=== PATIENT | male | born 2000 | race Two or more races ===

== ENCOUNTER 2019-11-06 07:42 | Emergency (ER) | payer SELFPAY ==
[2019-11-06 08:19] VITALS: BP 104/59
[2019-11-06] MEDS ORDERED: IBUPROFEN 800 MG TABLET PO ONE (08:52)
--- NOTE | 2019-11-06 09:36 | ER Document Report ---
ED Flu Like - General Chief Complaint: Flu Symptoms Stated Complaint: COLD SYMPTOMS Time Seen by Provider: 11/06/19 09:14 Primary Care Provider: [facility] [Provider Group] - Follow up in 1 week TRAVEL OUTSIDE OF THE [place] IN LAST 30 DAYS: No - HPI Notes: 19-year-old male to the emergency department with mom with complaints of fever, body aches, cough, sore throat that began 2 days ago. Fever has had reached a T-max of 101.5. Mom has been alternating between Tylenol and Motrin. Patient when he has a fever has chills and when the fever breaks he sweats. Patient admits to some nausea and vomiting but denies any diarrhea. He did not get a flu shot this season. He is unsure if he had any other sick contacts. - Related Data Allergies/Adverse Reactions: No Known Allergies Allergy (Verified 11/06/19 08:27) Past Medical History - General Information source: Patient, Parent, Friend - Social History Smoking Status: Never Smoker Frequency of alcohol use: None Drug Abuse: None Lives with: Family Family History: Reviewed & Not Pertinent Patient has suicidal ideation: No Patient has homicidal ideation: No Review of Systems - Review of Systems Constitutional: See HPI, Chills, Diaphoresis, Fever, Malaise, Weakness EENT: Nose congestion, Throat pain Cardiovascular: denies: Chest pain, Palpitations, Syncope, Dizziness, Lightheaded Respiratory: Cough. denies: Short of breath Gastrointestinal: Nausea, Vomiting. denies: Abdominal pain, Diarrhea Genitourinary: No symptoms reported Musculoskeletal: Muscle pain - Body aches Skin: No symptoms reported Hematologic/Lymphatic: No symptoms reported Neurological/Psychological: No symptoms reported -: Yes All other systems reviewed and negative Physical Exam - Vital signs Vitals: Temp Pulse Resp BP Pulse Ox 101.5 F H 98 20 104/59 L 99 11/06/19 08:18 11/06/19 08:18 11/06/19 08:18 11/06/19 08:18 11/06/19 08:18 Interpretation: Febrile - General General appearance: Appears well, Alert In distress: None - HEENT Head: Normocephalic, Atraumatic Eyes: Normal Pupils: PERRL Ears: Normal External canal: Normal Tympanic membrane: Normal Sinus: Normal Nasal: Clear rhinorrhea Mouth/Lips: Normal. No: Angioedema Mucous membranes: Normal Pharynx: Erythema - Mild erythema in the posterior oropharynx with no exudates or evidence of peritonsillar abscess. There is no Wale's angina. There is no uvula edema, airway is grossly patent.. No: Exudate, Peritonsillar abscess, Post nasal drainage, Retropharyngeal abscess, Potential airway comprom. Neck: Normal, Supple. No: Lymphadenopathy, Meningismus - Respiratory Respiratory status: No respiratory distress. No: Retractions, Tachypnea Chest status: Nontender. No: Pain with deep breathing Breath sounds: Nonproductive cough. No: Rales, Rhonchi, Stridor, Wheezing Chest palpation: Normal - Cardiovascular Rhythm: Regular Heart sounds: Normal auscultation Murmur: No - Abdominal Inspection: Normal Distension: No distension Bowel sounds: Normal Tenderness: Nontender Organomegaly: No organomegaly - Neurological Neuro grossly intact: Yes Cognition: Normal Orientation: AAOx4 [place] Coma Scale Eye Opening: Spontaneous Randall Coma Scale Verbal: Oriented [place] Coma Scale Motor: Obeys Commands [place] Coma Scale Total: 15 Speech: Normal Motor strength normal: LUE, RUE, LLE, RLE Sensory: Normal - Psychological Associated symptoms: Normal affect, Normal mood - Skin Skin Temperature: Warm Skin Moisture: Dry Skin Color: Normal Course - Re-evaluation Re-evalutation: 11/06/19 Impression: Influenza/flulike symptoms. Patient does not have strep throat or pneumonia on his chest x-ray. He tested negative for a and B here but suspect that this is a flulike syndrome. We will go ahead and discharge home with antiemetics, cough medicine, albuterol inhaler, Motrin. I encouraged pushing fluids. Have encouraged rest. Encouraged to return if symptoms are worsening. Patient and family agree with the plan. - Vital Signs Vital signs: Temp Pulse Resp BP Pulse Ox 98.5 F 98 20 104/59 L 99 11/06/19 10:42 11/06/19 08:18 11/06/19 08:18 11/06/19 08:18 11/06/19 08:18 11/06/19 Noted improvement of vital signs. - Diagnostic Test Radiology reviewed: Image reviewed, Reports reviewed Discharge - Discharge Clinical Impression: Influenza, Generalized body aches, Cough Condition: Stable Disposition: HOME, SELF-CARE Instructions: Influenza ([facility]) Additional Instructions: Take all medicines as prescribed. Push fluids such as Gatorade, Powerade, Pedialyte. Avoid caffeinated beverages or any alcohol. Rest. Return if worsening symptoms such as intractable nausea and vomiting, chest pain, shortness of breath. Prescriptions: Ondansetron [Zofran Odt 4 mg Tablet] 1 - 2 tab PO Q4HP PRN #10 tab.rapdis PRN Reason: Albuterol Sulfate [Albuterol Sulfate Hfa] 2 puff IH Q4H #1 hfa.aer.ad Ibuprofen [Motrin 800 mg Tablet] 800 mg PO Q8H PRN #30 tab PRN Reason: Promethazine/Dextromethorphan [Promethazine-Dm Syrup] 5 ml PO Q6H #120 ml Forms: Return to Work Referrals: [facility] [Provider Group] - Follow up in 1 week
[2019-11-06 09:43] LABS: A TYPE INFLUENZA AG NEGATIVE (NEGATIVE); B INFLUENZA AG NEGATIVE (NEGATIVE)
--- NOTE | 2019-11-06 10:45 | RADIOLOGY REPORT (SQ) ---
EXAM DESCRIPTION: CHEST 2 VIEWS COMPLETED DATE/TIME: 11/06/2019 10:08 am REASON FOR STUDY: cough, fever COMPARISON: None. TECHNIQUE: Frontal and lateral radiographic views of the chest acquired. NUMBER OF VIEWS: Two view. LIMITATIONS: None. FINDINGS: LUNGS AND PLEURA: No opacities, masses or pneumothorax. No pleural effusion. MEDIASTINUM AND HILAR STRUCTURES: No masses or contour abnormalities. HEART AND VASCULAR STRUCTURES: Heart normal size. No evidence for failure. BONES: No acute findings. HARDWARE: None in the chest. OTHER: No other significant finding. IMPRESSION: NO SIGNIFICANT RADIOGRAPHIC FINDING IN THE CHEST. TECHNICAL DOCUMENTATION: JOB ID: [id number] 2010 [employer]- All Rights Reserved Reading location - IP/workstation name: [email or web address]
== END 2019-11-06 11:17 | disposition home or self-care (01) ==
LOC: ER 07:42
DX: J11.1 Influenza due to unidentified influenza virus with other respiratory manifestations (principal); M79.10 Myalgia, unspecified site; R05 Cough; R50.9 Fever, unspecified; R11.2 Nausea with vomiting, unspecified
CPT/HCPCS: 71046; 87070; 87804; 87880